=== PATIENT | male | born 1965 | race Caucasian/White ===

== ENCOUNTER 2017-03-12 14:57 | Emergency (ER) | payer OTHER ==
[~2017-03-12] VITALS: Ht 182.9 cm; Wt 104.5 kg
[2017-03-12 16:40] VITALS: BP 131/99
== END 2017-03-12 16:41 | disposition home or self-care (01) ==
LOC: EME 14:57
DX: S71.111A Laceration without foreign body, right thigh, initial encounter (principal); W26.8XXA Contact with other sharp object(s), not elsewhere classified, initial encounter; Y93.89 Activity, other specified; Z23 Encounter for immunization
CPT/HCPCS: 99281; 99283

== ENCOUNTER 2017-03-19 10:49 | Emergency (ER) | payer OTHER ==
[~2017-03-19] VITALS: Ht 182.9 cm; Wt 104.5 kg
[2017-03-19 12:50] VITALS: BP 148/101
== END 2017-03-19 12:50 | disposition home or self-care (01) ==
LOC: EME 10:49
DX: S71.111D Laceration without foreign body, right thigh, subsequent encounter (principal); Z48.02 Encounter for removal of sutures
CPT/HCPCS: 99281; 99283